=== PATIENT | female | born 1995 | race African-American/Black ===

== ENCOUNTER 2021-06-12 15:24 | Observation (INO) | payer MEDICAID | END 2021-06-12 16:35 | disposition home or self-care (01) | LOC: LDRP 15:24 → UNDODISOB 16:35 | PROVIDERS: ADMIT Obstetrics & Gynecology Obstetrics; ATTEND Obstetrics & Gynecology Obstetrics | DX: O62.9 Abnormality of forces of labor, unspecified (principal); O26.893 Other specified pregnancy related conditions, third trimester; N89.8 Other specified noninflammatory disorders of vagina; Z3A.35 35 weeks gestation of pregnancy | CPT/HCPCS: G0378 ×2; 59025; 81002; 94760 ==

== ENCOUNTER 2022-07-07 22:45 | Emergency (ER) | payer MEDICAID, OTHER ==
[~2022-07-07] VITALS: Ht 182.9 cm; Wt 84.0 kg
[2022-07-07 23:15] VITALS: BP 105/63
[2022-07-07 23:56] LABS: Basophils # (auto) 0.1 10 ^3/uL (0-0.2); Hemoglobin 12.6 g/dL (12.2-16.2); Lymphocytes # (auto) 3.2 10 ^3/uL (0.4-5.4); Monocytes # (auto) 0.5 10 ^3/uL (0-1.3); Monocytes % (auto) 6.6 % (0.0-12.0); Nucleated Red Blood Cells % 0.1 %
[2022-07-07 23:58] LABS: Basophils % (auto) 0.7 % (0.0-2.0); Eosinophils # (auto) 0.1 10 ^3/uL (0-0.8); Eosinophils % (auto) 1.8 % (0.0-7.0); Hematocrit 37.6 % (36.0-46.0); Lymphocytes % (auto) 41.1 % (10.0-50.0); Mean Corpuscular Hemoglobin 24.6 pg (28.0-32.0); Mean Corpuscular Hgb Conc. 33.6 g/dL (32.0-36.0); Mean Corpuscular Volume 73.2 fL (80.0-100.0); Neutrophils # (auto) 3.9 10 ^3/uL (1.6-8.6); Neutrophils % (auto) 49.8 % (37.0-80.0); Red Blood Cells 5.14 10^6/uL (4.0-5.20); Red Cell Distribution Width 19.1 % (11.8-14.3); White Blood Cell 7.8 10^3/uL (4.4-10.8)
[2022-07-08 00:06] LABS: Albumin 3.9 g/dL (3.4-5.0); BUN/Creatinine Ratio 15.4 (10.0-20.0); Calcium 9.6 mg/dL (8.5-10.1); Potassium 3.3 mmol/L (3.5-5.1)
[2022-07-08 00:09] LABS: Bilirubin, Total 0.4 mg/dL (0.2-1.0); Total Protein 8.1 g/dL (6.4-8.2)
[2022-07-08 01:10] LABS: Urine Bacteria NONE SEEN /hpf (None Seen); Urine Blood 3+ /uL (Negative); Urine Hyaline Cast FEW /lpf (0 - 2); Urine Mucus FEW (None Seen); Urine Specific Gravity 1.028 (1.001-1.035); Urine WBC 5 /hpf (0 - 5)
[2022-07-08 01:12] LABS: Alcohol, Urine < 3.0 mg/dL (0-10); Amphetamine Screen, Urine POSITIVE (NEGATIVE); Barbiturate Scree,Urine NEGATIVE (NEGATIVE); Cannabinoid Screen, Urine NEGATIVE (NEGATIVE)
[2022-07-08 01:21] LABS: Benzodiazephine Screen, Urine NEGATIVE (NEGATIVE); Cocaine Screen, Urine NEGATIVE (NEGATIVE); Opiate Scree,Urine NEGATIVE (NEGATIVE); Phencyclidine Screen, Urine NEGATIVE (NEGATIVE)
== END 2022-07-08 02:51 | disposition left against medical advice (07) ==
LOC: ER 22:45
DX: O46.8X2 Other antepartum hemorrhage, second trimester (principal); F15.90 Other stimulant use, unspecified, uncomplicated; O26.891 Other specified pregnancy related conditions, first trimester; R10.2 Pelvic and perineal pain; Z3A.16 16 weeks gestation of pregnancy
CPT/HCPCS: 36415; 76801; 80053; 80307; 81001; 84702; 85025

== ENCOUNTER 2022-07-08 07:47 | Inpatient (IN) | payer MEDICAID ==
[~2022-07-08] VITALS: Ht 177.8 cm; Wt 89.1 kg
[2022-07-08] MEDS ORDERED: SODIUM CHLORIDE 0.9% 2,000 ML IV ONE (08:15)
[2022-07-08] MEDS ORDERED: PROMETHAZINE HCL 25 MG/ML 1ML IV ONE (08:15)
[2022-07-08] MEDS ORDERED: MORPHINE SULFATE 4 MG/ML SYR/VIAL IV ONE (08:15)
[2022-07-08 09:07] LABS: Hematocrit 33.8 % (36.0-46.0); Mean Corpuscular Hemoglobin 24.8 pg (28.0-32.0); Mean Corpuscular Hgb Conc. 32.6 g/dL (32.0-36.0); Red Blood Cells 4.45 10^6/uL (4.0-5.20); Red Cell Distribution Width 19.5 % (11.8-14.3); White Blood Cell 7.8 10^3/uL (4.4-10.8)
[2022-07-08 09:12] LABS: Band Neutrophils % (manual) 0; Basophils % (manual) 0 (0.0-2.0); Blast Cells 0; Metamyelocytes % 0; Myelocytes % 0; Promyelocytes % 0
[2022-07-08 09:19] LABS: Calcium 8.7 mg/dL (8.5-10.1); Potassium 3.4 mmol/L (3.5-5.1)
[2022-07-08 09:23] LABS: BUN/Creatinine Ratio 13.4 (10.0-20.0); Bilirubin, Total 0.4 mg/dL (0.2-1.0); Total Protein 6.5 g/dL (6.4-8.2)
[2022-07-08] MEDS ORDERED: ACETAMINOPHEN 325 MG TAB PO ONE (10:45)
[2022-07-08 10:59] LABS: Eosinophils % (manual) 2 (0-7); Lymphocytes % (manual) 58 (10.0-50.0); Monocytes % (manual) 8 (0-12); Reactive Lymphocytes 4
[2022-07-08] MEDS ORDERED: MORPHINE SULFATE INJ 2 MG/ml SYRG IV PRN (13:00)
[2022-07-08] MEDS ORDERED: ONDANSETRON HCL 4 MG/2 ML VIAL IV PRN ×3 (13:00→22:00)
[2022-07-08 15:09] LABS: INR 1.05 (0.9-1.15); Partial Thromboplastin Time 23.4 sec (24.6-33.4)
[2022-07-08] MEDS ORDERED: SODIUM CHLORIDE 0.9% 1,000 ML IV SCH (18:15)
[2022-07-08] MEDS ORDERED: SODIUM CHLORIDE 0.9% 1,000 ML IV ONE (18:15)
[2022-07-08 19:45] LABS: Basophils % (auto) 0.6 % (0.0-2.0); Eosinophils # (auto) 0.1 10 ^3/uL (0-0.8); Eosinophils % (auto) 1.7 % (0.0-7.0); Hematocrit 18.7 % (36.0-46.0); Lymphocytes # (auto) 3.2 10 ^3/uL (0.4-5.4); Monocytes # (auto) 0.6 10 ^3/uL (0-1.3); Nucleated Red Blood Cells % 0.1 %; Red Blood Cells 2.49 10^6/uL (4.0-5.20)
[2022-07-08 19:48] LABS: Basophils # (auto) 0 10 ^3/uL (0-0.2); Lymphocytes % (auto) 36.7 % (10.0-50.0); Mean Corpuscular Hemoglobin 24.6 pg (28.0-32.0); Mean Corpuscular Hgb Conc. 32.8 g/dL (32.0-36.0); Mean Corpuscular Volume 75.1 fL (80.0-100.0); Neutrophils # (auto) 4.7 10 ^3/uL (1.6-8.6); Red Cell Distribution Width 19.2 % (11.8-14.3); White Blood Cell 8.6 10^3/uL (4.4-10.8)
[2022-07-08 20:19] LABS: Hemoglobin 6.1 g/dL (12.2-16.2)
[2022-07-08] MEDS ORDERED: SUCCINYLCHOLINE CHLORIDE 20 MG/ML 10ML VIAL IV ONE (21:03)
[2022-07-08] MEDS ORDERED: FAMOTIDINE (10MG/ML) 2ML VL IV ONE (21:03)
[2022-07-08] MEDS ORDERED: MIDAZOLAM HCL 2MG/2ML 2ml VIAL (1mg/ml) ONE (21:05)
[2022-07-08] MEDS ORDERED: fentaNYL CITRATE 100 MCG/2 ML VL ONE (21:05)
[2022-07-08] MEDS ORDERED: HYDROmorphone HCL 2 MG/ML VL/or syr ONE (21:05)
[2022-07-08] MEDS ORDERED: LIDOCAINE 2% (LOCAL ANESTH.) PF 5ml SDV ONE (21:06)
[2022-07-08] MEDS ORDERED: GLYCOPYRROLATE 0.2 MG/ML 1ML VIAL ONE (21:07)
[2022-07-08] MEDS ORDERED: DexAMETHasone SOD PHOS 10MG/1ML VIAL INJ ONE (21:07)
[2022-07-08] MEDS ORDERED: ceFAZolin 1GM/50ML 100 ML IV ONE (21:10)
[2022-07-08] MEDS ORDERED: HYDROmorphone HCL 2 MG/ML VL/or syr IV PRN (21:30)
[2022-07-08] MEDS ORDERED: MEPERIDINE HCL (25 MG/ML) 1ML VIAL ONE (22:05)
[2022-07-08 23:52] VITALS: BP 103/41
[2022-07-08] MEDS: LACTATED RINGER'S 1,000 ML IV SCH (23:53)
[2022-07-09 01:02] LABS: Basophils # (auto) 0.1 10 ^3/uL (0-0.2); Basophils % (auto) 0.3 % (0.0-2.0); Eosinophils # (auto) 0 10 ^3/uL (0-0.8); Eosinophils % (auto) 0.2 % (0.0-7.0); Hematocrit 30.4 % (36.0-46.0); Hemoglobin 9.9 g/dL (12.2-16.2); Lymphocytes # (auto) 1.6 10 ^3/uL (0.4-5.4); Lymphocytes % (auto) 8.1 % (10.0-50.0); Mean Corpuscular Hgb Conc. 32.4 g/dL (32.0-36.0); Mean Corpuscular Volume 83.4 fL (80.0-100.0); Monocytes # (auto) 0.5 10 ^3/uL (0-1.3); Monocytes % (auto) 2.4 % (0.0-12.0); Neutrophils # (auto) 17.5 10 ^3/uL (1.6-8.6); Red Blood Cells 3.64 10^6/uL (4.0-5.20); Red Cell Distribution Width 19.4 % (11.8-14.3); White Blood Cell 19.6 10^3/uL (4.4-10.8)
[2022-07-09] MEDS: ceFAZolin 2 GM/D5W100ml 100 ML IV SCH ×2 (05:00→13:00)
[2022-07-09] MEDS ORDERED: ceFAZolin 1GM/50ML 100 ML IV ONE (05:26)
[2022-07-09 09:00] VITALS: BP 129/71
[2022-07-09] MEDS: LACTATED RINGER'S 1,000 ML IV SCH ×2 (09:34→11:20)
[2022-07-09 13:00] VITALS: BP 110/62
== END 2022-07-09 13:50 | disposition home or self-care (01) | DRG 543 ==
LOC: ER 07:47 → EDBD 07:47 → OVERFLOW 12:56 → WEST WING 23:34
PROVIDERS: ADMIT Obstetrics & Gynecology; ATTEND Obstetrics & Gynecology
PROC: 30233N1 Transfusion of Nonautologous Red Blood Cells into Peripheral Vein, Percutaneous Approach (ICD-10-PCS; 2022-07-08)
PROC: 10D17ZZ Extraction of Products of Conception, Retained, Via Natural or Artificial Opening (ICD-10-PCS; principal; 2022-07-08 21:30)
DX: O03.4 Incomplete spontaneous abortion without complication (principal); D64.9 Anemia, unspecified
CPT/HCPCS: 36415; 76801; 80053; 84702; 85007; 85025; 85027; 85610; 85730; 86850; 86900; 86901; 86920; G0378; J0330; J0690; J1100; J2001; J2250; J2405; J3490

== ENCOUNTER 2025-02-14 08:46 | Inpatient (IN) | payer MEDICAID ==
[~2025-02-14] VITALS: Ht 182.9 cm; Wt 74.1 kg
[~2025-02-14 08:46] MED LIST: CEPH250C PO
--- NOTE | 2025-02-14 09:35 | ED.PDOC ---
History of Present Illness HPI Comments 29 year old female presents to the ED with a chief complaint of wound check onset today. Patient states she has a LT foot wound s/p spider bite since 01/27/25. Patient was seen in this ED yesterday, patient was going to be admitted for cellulitis, left prior to admission. Patient is currently homeless. For the past week, she has been experiencing large abscess with purulent drainage, foul odor. She went to Dr[facility], advised to come to ED. Denies fever, chills, nausea, vomiting, diarrhea, numbness/tingling, chest pain, shortness of breath. No other symptoms or modifying factors present at this time. Chief Complaint: Wound Check Time Seen by MD: 09:20 Reviewed Notes: Medications, Allergies Allergies: Coded Allergies: NO KNOWN ALLERGIES (Unverified , 03/09/23) Home Meds Active Scripts Cephalexin (KEFLEX CAPSULE) 250 Mg Cp, 250 MG PO QID for 5 Days, #20 BOTTLE Prov:LAKIA COONNOR MD 05/13/24 Information Source: Patient Mode of Arrival: Ambulatory Severity: Moderate Past Medical History PAST MEDICAL HISTORY: Denies Surgical History: Denies all surgeries FIRE INVESTIGATOR History: No Pertinent FIRE INVESTIGATOR History Family History Family History: Reviewed,noncontributory to illness Social History Smoker: Non-Smoker Alcohol: Denies ETOH Use Drugs: Methamphetamine, Other Lives In: Homeless Constitutional: denies: chills, diaphoresis, fatigue, fever, malaise, sweats, weakness, others EENTM: denies: blurred vision, double vision, ear bleeding, ear discharge, ear drainage, ear pain, ear ringing, eye pain, eye redness, hearing loss, mouth pain, mouth swelling, nasal discharge, nose bleeding, nose congestion, nose pain, photophobia, tearing, throat pain, throat swelling, voice changes, others Respiratory: denies: cough, hemoptysis, orthopnea, SOB at rest, shortness of breath, SOB with excertion, stridor, wheezing, others Cardiovascular: denies: chest pain, dizzy spells, diaphoresis, Dyspnea on exertion, edema, irregular heart beat, left arm pain, lightheadedness, palpitations, PND, syncope, others Gastrointestinal: denies: abdomen distended, abdominal pain, blood streaked bowels, constipated, diarrhea, dysphagia, difficulty swallowing, hematemesis, melena, nausea, poor appetite, poor fluid intake, rectal bleeding, rectal pain, vomiting, others Genitourinary: denies: abnormal vagina bleeding, burning, dyspareunia, dysuria, flank pain, frequency, hematuria, incontinence, pain, , vagina discharge, urgency, others Neurological: denies: dizziness, fainting, headache, left sided numbness, left sided weakness, numbness, paresthesia, pre-existing deficit, right sided numbness, right sided weakness, seizure, speech problems, tingling, tremors, weakness, others Musculoskeletal: denies: back pain, gout, joint pain, joint swelling, muscle pain, muscle stiffness, neck pain, others Integumetry: reports: wounds (LT foot, edema, pain); denies: bruises, change in color, change in hair/nails, dryness, laceration, lesions, lumps, rash, others Allergic/Immunocompromised: denies: Difficulty Healing, Frequent Infections, Hives, Itching, others Hematologic/Lymphatic: denies: anemia, blood clots, easy bleeding, easy bruising, swollen glands, others Endocrine: denies: excessive hunger, excessive sweating, excessive thirst, excessive urination, flushing, intolerance to cold, intolerance to heat, unexplained weight gain, unexplained weight loss, others Psychiatric: denies: anxiety, bipolar disorder, depression, hopeless, panic disorder, schizophrenia, sleepless, suicidal, others All Other Systems: Reviewed and Negative Physical Exam General Appearance: Moderate Distress, Normal HEENT: Normal ENT Inspection, Pharynx Normal, TMs Normal Neck: Full Range of Motion, Non-Tender, Normal, Normal Inspection Respiratory: Chest Non-Tender, Lungs Clear, No Accessory Muscle Use, No Respiratory Distress, Normal Breath Sounds Cardiovascular: No Edema, No JVD, No Murmur, No Gallop, Normal Peripheral Pulses, Regular Rate/Rhythm Breast Exam: Deferred Gastrointestinal: No Organomegaly, Non Tender, No Pulsatile Mass, Normal Bowel Sounds, Soft Genitalia: Deferred Pelvic: Deferred Rectal: Deferred Extremities: No calf tenderness, Normal capillary refill, Normal range of motion, Non-tender, No pedal edema, Swelling (Left foot) Musculoskeletal : Apperance: Normal Neurologic: Alert, cs associate II-XII nml as Tested, No Motor Deficits, Normal Affect, Normal Mood, No Sensory Deficits Cerebellar Function: Normal Reflexes: Normal Skin: Dry, Normal Color, Warm, Wounds (Left foot) Peripheral Pulses: 3+ Radial (R), 3+ Radial (L) Lymphatic: No Adenopathy Was a procedure done? Was a procedure done?: No Differential Dx Considerations may include: Cellulitis Sepsis X-Ray, Labs, Meds, VS Vital Signs Date Time Temp Pulse Resp B/P (MAP) Pulse Ox O2 Delivery O2 Flow Rate FiO2 02/14/25 09:20 97.9 75 17 132/81 (98) 96 97.9 02/14/25 08:50 98.5 105 16 141/93 100 98.5 Patient alert. Came in because of foot infection. Vitals stable. Answering questions. On examination she does have swelling of the left foot pain Reviewed her previous visit. She left against medical advice. She does not state the whole course of her visit. Establish intravenous access. Was given fluids. Was given Rocephin. Was given clindamycin. Explained to the patient. Continue monitoring. Time of 1ST Reevaluation: 09:50 Reevaluation 1ST: Unchanged Patient Education/Counseling: Diagnosis, Treatment, Prognosis Family Education/Counseling: No Family Present SEPSIS Sepsis Screen Date sepsis recognized/suspect: Feb 14, 2025 Time Sepsis recognized/suspect: 0851 Recent Procedure: No On Antibiotic Therapy: No Respiratory Rate >20: No Heart Rate >90: Yes Temp<36 C (96.8 F) or >38.3 C: No SBP <90 or MAP <65 mmHG: No New Acute Mental Status Change: No Is the patient on CPAP, BIPAP,: No Vital Signs Date Time Temp Pulse Resp B/P (MAP) Pulse Ox O2 Delivery O2 Flow Rate FiO2 02/14/25 09:20 97.9 75 17 132/81 (98) 96 97.9 02/14/25 08:50 98.5 105 16 141/93 100 98.5 Departure 1 Departure Time of Disposition: 11:03 Impression: Primary Impression: Cellulitis Qualified Codes: L03.116 - Cellulitis of left lower limb Additional Impression: Chronic wound of extremity Disposition: ADMITTED INPATIENT Admit to: Med Surg Condition: Guarded Critical Care Note Critical Care Time?: No Stability Stability form required: No Heart Score Heart Score: Heart Score Response (Comments) Value History N/A 0 EKG N/A 0 Age N/A 0 Risk Factors N/A 0 Troponin N/A 0 Total 0 I personally scribed for LAKIA OCONNOR MD ([email or web address]) on 02/14/25 at 09:35. Electronically submitted by Tamiko Cristobal ([email or web address]). LAKIA OCONNOR MD Feb 14, 2025 09:35
[2025-02-14] MEDS ORDERED: SODIUM CHLORIDE 0.9% 1,000 ML IV ONE (11:15)
[2025-02-14] MEDS ORDERED: MORPHINE SULFATE INJ 2 MG/ml SYRG IV PRN (11:30)
[2025-02-14] MEDS ORDERED: DOCUSATE SOD 100 MG CAP PO PRN (11:30)
[2025-02-14] MEDS ORDERED: IBUPROFEN 600 MG TAB PO PRN (11:30)
[2025-02-14] MEDS: SODIUM CHLORIDE 0.9% 1,000 ML IV SCH (11:30)
[2025-02-14] MEDS ORDERED: ONDANSETRON HCL 4 MG/2 ML VIAL IV PRN (11:30)
[2025-02-14 11:50] LABS: Hematocrit 34.7 % (36.0-46.0); Hemoglobin 11.3 g/dL (12.2-16.2); Mean Corpuscular Hemoglobin 24.0 pg (28.0-32.0); Mean Corpuscular Volume 73.8 fL (80.0-100.0); Nucleated Red Blood Cells % 0.0 %
[2025-02-14 11:53] LABS: Chloride 102 mmol/L (98-107); Potassium 4.2 mmol/L (3.5-5.1); Sodium 137 mmol/L (136-145)
[2025-02-14 11:54] LABS: Anion Gap 6 (5-15); Carbon Dioxide 29 mmol/L (20-31)
[2025-02-14 11:55] LABS: Calcium 9.5 mg/dL (8.7-10.4)
[2025-02-14 12:00] LABS: BUN/Creatinine Ratio 10.2 (10.0-20.0); Glucose 88 mg/dL (74-106)
[2025-02-14 12:02] LABS: Blood Urea Nitrogen 6 mg/dL (9-23)
--- NOTE | 2025-02-14 12:54 | DVHHP2 ---
History of Present Illness Reason for Visit: Cellulitis of left lower limb History of Present Illness The patient is a 29-year-old female who denies past medical history presented to [facility] ED with complaint of left foot pain. Patient reports that she had a spider bite on January 27, 2025 which has progressively became infected with open wound abscess with purulent discharge, foul odor, getting worse that prompted this visit. Patient was seen and evaluated in the ED, laboratory data shows WBC 6.8, hemoglobin 11.3, hematocrit 34.7, platelets 508, sodium 137, potassium 4.2, BUN 6, creatinine 0.59, GFR 124, glucose 88, calcium 9.5, blood pressure 132/81, heart rate 75, temperature 97.9 F, O2 saturation 97% on room air. Left foot x-ray revealing soft tissue defect along the lateral and dorsal aspect of the ankle with underlying skin thickening and soft tissue fluid/standing. Patient was started on IV antibiotic regimen clindamycin, please see medication orders section in the computer. On my assessment, patient denied chest pain, no headache, dizziness, shortness of breaths, no diarrhea, nausea, vomiting, fever, no chills. Patient was admitted for further evaluation and medical management. Past Medical History Denies past medical history Past Surgical History Denies all surgeries Family History Reviewed, noncontributory to the management of this case. Past Social History The patient is homeless, denies smoking or alcohol use, uses methamphetamine. Review of Systems Constitutional: No: Fever, Chills, Sweats, Weakness, Malaise, Other Eyes: No: Pain, Vision change, Conjunctivae inflammation, Eyelid inflammation, Other, Redness ENT: No: Ear pain, Ear discharge, Nose pain, Nose discharge, Nose congestion, Mouth pain, Mouth swelling, Throat pain, Throat swelling, Other Respiratory: No: Cough, Dry, Shortness of breath, SOB with excertion, Wheezing, Hemoptysis, Pleuritic Pain, Sputum, Wheezing, Other Cardiovascular: No: Chest Pain, Palpitations, Orthopnea, Paroxysmal Noc. Dyspnea, Edema, Lt Headedness, Other Gastrointestinal: No: Nausea, Vomiting, Abdominal Pain, Diarrhea, Constipation, Melena, Hematochezia, Other Genitourinary: No Dysuria, No Frequency, No Incontinence, No Hematuria, No Retention, No Other Musculoskeletal: other (Left foot edema/pain); No: neck pain, shoulder pain, arm pain, back pain, hand pain, leg pain, foot pain Skin: Other (Left foot abscess); No: Rash, Lesions, Jaundice, Bruising Neurological: No: Weakness, Numbness, Incoordination, Change in speech, Confusion, Seizures, Other Allergies: Coded Allergies: NO KNOWN ALLERGIES (Unverified , 03/09/23) Medications Current Medications Medications Dose Ordered Sig/Nadia Route Start Time Stop Time Status Last Admin Dose Admin Ceftriaxone Sodium 50 ml @ 100 mls/hr DAILY@09 IV 02/15/25 09:00 Clindamycin Phosphate 50 ml @ 50 mls/hr Q8HR IV 02/14/25 19:00 Sodium Chloride 1,000 ml @ 60 mls/hr [id number] IV 02/14/25 11:30 Acetaminophen/ Hydrocodone Bitart 1 tab Q4HP PRN PO 02/14/25 11:30 Ondansetron HCl 4 mg Q4HP PRN IV 02/14/25 11:30 Docusate Sodium 100 mg BIDPRN PRN PO 02/14/25 11:30 Enoxaparin Sodium 40 mg DAILY SC 02/15/25 10:00 Future Hold Zinc Sulfate 220 mg DAILY PO 02/15/25 10:00 Ascorbic Acid 500 mg BID PO 02/14/25 22:00 Morphine Sulfate 2 mg Q4HPRN PRN IV 02/14/25 11:30 Ibuprofen 600 mg Q6HP PRN PO 02/14/25 11:30 Exam Vital Signs Vital Signs Date Time Temp Pulse Resp B/P (MAP) Pulse Ox O2 Delivery O2 Flow Rate FiO2 02/14/25 09:20 97.9 75 17 132/81 (98) 96 97.9 General Appearance: Alert, Oriented X3, Cooperative, No acute distress HEENT: Atraumatic, PERRLA, EOMI, Mucous membr. moist/pink Respiratory: Clear to auscultation, Normal air movement Cardiovascular: Regular rate, Normal S1, Normal S2, No murmurs Abdominal: Normal bowel sounds, Soft, No tenderness, No hepatospenomegaly, No masses Extremities: No clubbing, No cyanosis, No edema, Normal pulses, No tenderness/swelling Skin: No rashes, No significant lesion Neuro: Normal gait, Normal speech, Normal tone, Sensation intact, Cranial nerves 3-12 NL, Reflexes 2+ Psych/Mental Status: Mental status NL, Mood NL Labs/Xrays Labs Test 02/14/25 11:27 Range/Units White Blood Count 6.8 4.4-10.8 10^3/uL Red Blood Count 4.70 4.0-5.20 10^6/uL Hemoglobin 11.3 L 12.2-16.2 g/dL Hematocrit 34.7 L 36.0-46.0 % Mean Corpuscular Volume 73.8 L 80.0-100.0 fL Mean Corpuscular Hemoglobin 24.0 L 28.0-32.0 pg Mean Corpuscular Hemoglobin Concent 32.5 32.0-36.0 g/dL Red Cell Distribution Width 16.9 H 11.8-14.3 % Platelet Count 508 H 140-450 10^3/uL Mean Platelet Volume 6.5 L 6.9-10.8 fL Neutrophils (%) (Auto) 43.8 37.0-80.0 % Lymphocytes (%) (Auto) 44.0 10.0-50.0 % Monocytes (%) (Auto) 9.8 0.0-12.0 % Eosinophils (%) (Auto) 1.5 0.0-7.0 % Basophils (%) (Auto) 0.9 0.0-2.0 % Neutrophils # (Auto) 3.0 1.6-8.6 10 ^3/uL Lymphocytes # (Auto) 3.0 0.4-5.4 10 ^3/uL Monocytes # (Auto) 0.7 0-1.3 10 ^3/uL Eosinophils # (Auto) 0.1 0-0.8 10 ^3/uL Basophils # (Auto) 0.1 0-0.2 10 ^3/uL Nucleated Red Blood Cells 0.0 % Sodium Level 137 136-145 mmol/L Potassium Level 4.2 3.5-5.1 mmol/L Chloride Level 102 98-107 mmol/L Carbon Dioxide Level 29 20-31 mmol/L Anion Gap 6 5-15 Blood Urea Nitrogen 6 L 9-23 mg/dL Creatinine 0.59 0.550-1.02 mg/dL Glomerular Filtration Rate Calc 124 >90 mL/min BUN/Creatinine Ratio 10.2 10.0-20.0 Serum Glucose 88 74-106 mg/dL Calcium Level 9.5 8.7-10.4 mg/dL PATIENT: CHANDA BLANCHARD ACCT: [id number] UNIT: [id number] : 1995 LOC: OVERFLOW ROOM / BED: 1019-ER / A AGE / SEX: 29 / F ADM STATUS: ADM IN SERVICE 2324 ORDERING PHYSICIAN: RACHID RICE PROCEDURE(s): LFTCT - CT L FOOT WO CONTRAST REASON: wound ORDER NUMBER(s): [id number], ACCESSION NUMBER(s): [id number] EXAM: CT CT L FOOT WO CONTRAST HISTORY: wound COMPARISON: None TECHNIQUE: Noncontrast axial CT images of the left foot were performed. Sagittal and coronal reformatted images were obtained. This CT exam was performed using one or more of the following dose reduction techniques: Automated exposure control, adjustment of the mA and/or kv according to patient size, or the use of iterative reconstruction techniques. Radiation Dose Information: CT Dose: CTDI volume is 7.75 mGy. Dose-length product is 211.92 mGy*cm FINDINGS: No acute fracture or dislocation are identified about the left foot. No significant degenerative changes. There is a soft tissue defect along the lateral and dorsal aspect of the ankle with underlying skin thickening, soft tissue fluid/stranding. No drainable collection is seen. IMPRESSION: 1. Soft tissue defect along the lateral and dorsal aspect of the ankle with underlying skin thickening and soft tissue fluid/stranding. No drainable collection is seen. MRI would be more sensitive for the evaluation of suspected osteomyelitis if clinically indicated. SEPSIS Sepsis Screen Date sepsis recognized/suspect: Feb 14, 2025 Time Sepsis recognized/suspect: 0851 Recent Procedure: No On Antibiotic Therapy: No Respiratory Rate >20: No Heart Rate >90: Yes Temp<36 C (96.8 F) or >38.3 C: No SBP <90 or MAP <65 mmHG: No New Acute Mental Status Change: No Is the patient on CPAP, BIPAP,: No Physician Orders Urinalysis (02/14/25 11:05) Ceftriaxone 1gm/50ml (Rocephin) (02/15/25 09:00) Clindamycin 300mg Iv (Cleocin Iv) (02/14/25 19:00) Allergies (02/14/25 11:16) Code Status (02/14/25 11:16) Sodium Chloride 0.9% (02/14/25 11:30) Oxygen Per Hour (02/14/25 11:16) Hydrocodone-Acet 5/325mg Tab ([place] 532 (02/14/25 11:30) Ondansetron Hcl (Zofran) (02/14/25 11:30) Docusate Sodium Capsule (Colace Capsule) (02/14/25 11:30) Enoxaparin Sodium (Lovenox) (02/15/25 10:00) Zinc Sulfate (02/15/25 10:00) Ascorbic Acid Tablet (Vitamin C Tablet) (02/14/25 22:00) Complete Blood Count (02/15/25 04:00) Comprehensive Metabolic Panel (02/15/25 04:00) Cardiac Diet-2gna,Lofat,Lochol (02/14/25 Lunch) Condition: Serious (02/14/25 11:16) Bedrest With Bathroom Privileg (02/14/25 11:16) Morphine Sulfate Injection (02/14/25 11:30) Ibuprofen Tablet (Motrin Tablet) (02/14/25 11:30) Admit (02/14/25 12:53) Nitroglycerin Sublingual (Ntrostat Subli (02/14/25 13:00) Vital Signs Date Time Temp Pulse Resp B/P (MAP) Pulse Ox O2 Delivery O2 Flow Rate FiO2 02/14/25 09:20 97.9 75 17 132/81 (98) 96 97.9 02/14/25 08:50 98.5 105 16 141/93 100 98.5 Laboratory Tests Test 02/14/25 11:27 White Blood Count 6.8 10^3/uL (4.4-10.8) Assessment/Plan Assessment/Plan Cellulitis of left lower limb Thrombocytosis Chronic wound of extremity Plan 1. Admit to med surge unit 2. Breathing treatment 3. Pain control management 4. IV antibiotic management 5. Management of fluids and electrolytes 6. Consultation for hospitalist/wound care 7. Diagnostic test left foot CT 8. DVT prophylaxis on Lovenox 9. Repeat labs CBC, CMP in a.m. 10. Continue with current medical management 11. Treatment plan discussed with patient and RN. Patient verbalized understanding. Plan discussed with: Patient, Other (RN) My Orders Orders - DANIEL MCGOVERN DNP Procedure Category Date Status Time Ceftriaxone 1gm/50ml PHA 02/15/25 In Process (Rocephin) 09:00 Clindamycin 300mg Iv PHA 02/14/25 In Process (Cleocin Iv) 19:00 Allergies HOLLIE 02/14/25 In Process 11:16 Code Status CODE 02/14/25 Transmitted 11:16 Sodium Chloride 0.9% PHA 02/14/25 In Process 11:30 Oxygen Per Hour RT 02/14/25 Transmitted 11:16 Hydrocodone-Acet PHA 02/14/25 In Process 5/325mg Tab ([place] 11:30 Ondansetron Hcl PHA 02/14/25 In Process (Zofran) 11:30 Docusate Sodium PHA 02/14/25 In Process Capsule (Colace 11:30 Enoxaparin Sodium PHA 02/15/25 In Process (Lovenox) 10:00 Zinc Sulfate PHA 02/15/25 In Process 10:00 Ascorbic Acid Tablet PHA 02/14/25 In Process (Vitamin C Tablet) 22:00 Complete Blood Count LAB 02/15/25 Verified 04:00 Comprehensive LAB 02/15/25 Verified Metabolic Panel 04:00 Cardiac DIET 02/14/25 Transmitted Diet-2gna,Lofat,Lochol Lunch Condition: Serious HOLLIE 02/14/25 In Process 11:16 Bedrest With Bathroom HOLLIE 02/14/25 In Process Privileg 11:16 Morphine Sulfate PHA 02/14/25 In Process Injection 11:30 Ibuprofen Tablet PHA 02/14/25 In Process (Motrin Tablet) 11:30 Admit ADMIT 02/14/25 Verified 12:53 Nitroglycerin PHA 02/14/25 Verified Sublingual (Ntrostat 13:00 Problem List: (1) Cellulitis of left lower limb (2) Thrombocytosis (3) Chronic wound of extremity Date of Service: Feb 14, 2025 Billing Provider: DANIEL MCGOVERN DNP Common Visit Codes: [id number] INP/OBS CARE (MOD) DANIEL MCGOVERN DNP Feb 14, 2025 12:54
[2025-02-14] MEDS ORDERED: NITROGLYCERIN 0.4 MG SL TAB SL PRN (13:00)
[2025-02-14] MEDS ORDERED: MORPHINE SULFATE 4 MG/ML SYR/VIAL IV PRN (13:15)
[2025-02-14] MEDS: SODIUM CHLORIDE 0.9% 1,000 ML IV ONE (13:55)
[2025-02-14 14:00] VITALS: PULSE 70; RESP 16; O2SAT 96
[2025-02-14] MEDS: CLINDAMYCIN 600MG IV 50 ML IV ONE (16:08)
[2025-02-14] MEDS: CLINDAMYCIN 300MG IV 50 ML IV SCH (19:55)
[2025-02-14 20:38] VITALS: BP 126/87; PULSE 86; RESP 17; TEMP 97.7; O2SAT 98
[2025-02-14] MEDS: ASCORBIC ACID 500 MG TAB PO SCH (21:40)
[2025-02-14 23:24] VITALS: PULSE 98; RESP 16; O2SAT 97
[2025-02-15 01:00] VITALS: BP 130/89; PULSE 98; RESP 16; TEMP 98; O2SAT 95
[2025-02-15 05:00] VITALS: BP 158/85; PULSE 111; RESP 18; TEMP 98.7; O2SAT 99
[2025-02-15 07:05] LABS: Hematocrit 31.0 % (36.0-46.0); Hemoglobin 10.1 g/dL (12.2-16.2); Mean Corpuscular Hemoglobin 23.9 pg (28.0-32.0); Mean Corpuscular Volume 73.5 fL (80.0-100.0); Nucleated Red Blood Cells % 0.1 %
[2025-02-15 07:15] LABS: Alkaline Phosphatase 73 U/L (46-116); Anion Gap 8 (5-15); Calcium 8.8 mg/dL (8.7-10.4); Carbon Dioxide 26 mmol/L (20-31); Chloride 106 mmol/L (98-107); Glucose 95 mg/dL (74-106); Potassium 3.7 mmol/L (3.5-5.1); Sodium 140 mmol/L (136-145); Total Protein 7.3 g/dL (5.7-8.2)
[2025-02-15 07:30] LABS: Alanine Aminotransferase 117 U/L (7-40); Albumin 3.1 g/dL (3.2-4.8); BUN/Creatinine Ratio 8.6 (10.0-20.0); Bilirubin, Total 0.3 mg/dL (0.2-1.0); Blood Urea Nitrogen < 5 mg/dL (9-23)
[2025-02-15 08:00] VITALS: O2SAT 98
[2025-02-15 09:00] VITALS: BP 146/93; PULSE 62; RESP 18; TEMP 97.2; O2SAT 98
[2025-02-15] MEDS: ENOXAPARIN SOD 40 MG/0.4 ML SYRINGE SC SCH (10:38)
[2025-02-15] MEDS: ZINC SULFATE 220mg CAP or TAB PO SCH (10:38)
--- NOTE | 2025-02-15 15:35 | DVHPN2 ---
Changes from previous H/P or p: No Changes Eyes: No Pain, No Vision change, No Conjunctivae inflammation, No Eyelid inflammation, No Other, No Redness ENT: No Ear pain, No Ear discharge, No Nose pain, No Nose discharge, No Nose congestion, No Mouth pain, No Mouth swelling, No Throat pain, No Throat swelling, No Other Cardiovascular: No Chest Pain, No Palpitations, No Orthopnea, No Paroxysmal Noc. Dyspnea, No Edema, No Lt Headedness, No Other Respiratory: No Cough, No Dry, No Shortness of breath, No SOB with excertion, No Wheezing, No Hemoptysis, No Pleuritic Pain, No Sputum, No Other Gastrointestinal: No Nausea, No Vomiting, No Abdominal Pain, No Diarrhea, No Constipation, No Melena, No Hematochezia, No Other Genitourinary: No Dysuria, No Frequency, No Incontinence, No Hematuria, No Retention, No Other Musculoskeletal: other (Left foot edema/pain); No neck pain, No shoulder pain, No arm pain, No back pain, No hand pain, No leg pain, No foot pain Skin: No Rash, No Lesions, No Jaundice, No Bruising; Other (Left foot abscess) Objective Vitals Vital Signs Date Time Temp Pulse Resp B/P (MAP) Pulse Ox O2 Delivery O2 Flow Rate FiO2 02/15/25 09:00 97.2 62 18 146/93 (110) 98 97.2 02/14/25 23:24 Room Air* 0 21 Intake/Output Intake and Output 02/15/25 07:00 Intake Total 1425 ml Balance 1425 ml Intake Oral 325 ml IV Total 1100 ml Medications Current Medications Medications Dose Ordered Sig/Nadia Route Start Time Stop Time Status Last Admin Dose Admin Ceftriaxone Sodium 50 ml @ 100 mls/hr DAILY@09 IV 02/15/25 09:00 02/15/25 10:38 100 MLS/HR Clindamycin Phosphate 50 ml @ 50 mls/hr Q8HR IV 02/14/25 19:00 02/15/25 14:15 50 MLS/HR Sodium Chloride 1,000 ml @ 60 mls/hr [id number] IV 02/14/25 11:30 02/15/25 04:24 60 MLS/HR Acetaminophen/ Hydrocodone Bitart 1 tab Q4HP PRN PO 02/14/25 11:30 Ondansetron HCl 4 mg Q4HP PRN IV 02/14/25 11:30 Docusate Sodium 100 mg BIDPRN PRN PO 02/14/25 11:30 Enoxaparin Sodium 40 mg DAILY SC 02/15/25 10:00 02/15/25 10:38 40 MG Zinc Sulfate 220 mg DAILY PO 02/15/25 10:00 02/15/25 10:38 220 MG Ascorbic Acid 500 mg BID PO 02/14/25 22:00 02/15/25 10:38 500 MG Ibuprofen 600 mg Q6HP PRN PO 02/14/25 11:30 Nitroglycerin 0.4 mg Q5MINP PRN SL 02/14/25 13:00 Morphine Sulfate 2 mg Q30M PRN IV 02/14/25 13:15 Morphine Sulfate 2 mg Q4HPRN PRN IV 02/15/25 11:15 Laboratory Results Laboratory Tests 02/15/25 04:47 Chemistry Test 02/15/25 04:47 Albumin 3.1 g/dL (3.2-4.8) L Calcium Level 8.8 mg/dL (8.7-10.4) Total Protein 7.3 g/dL (5.7-8.2) LFT Test 02/15/25 04:47 Alanine Aminotransferase (ALT) 117 U/L (7-40) H Alkaline Phosphatase 73 U/L (46-116) Aspartate Amino Transferase (AST) 111 U/L (13-40) H Total Bilirubin 0.3 mg/dL (0.2-1.0) Labs and/or images reviewed: Labs reviewed by me, Image(s) reviewed by me Assessment/Plan Assessment/Plan Cellulitis of left foot: Rocephin clindamycin pain medication Thrombocytosis Chronic wound of extremity DCd from this hospital 02-14-25 Check Urine drug screen MIKE vera at bedside Plan discussed with: Patient Date of Service: Feb 15, 2025 Billing Provider: EMANUEL WEEKS MD Common Visit Codes: [id number] INP/OBS CARE(HIGH) EMANUEL WEEKS MD Feb 15, 2025 15:35
[2025-02-15 20:00] VITALS: PULSE 99; RESP 17; O2SAT 98
[2025-02-15 21:00] VITALS: BP 124/91; PULSE 99; RESP 17; TEMP 98.4; O2SAT 98
[2025-02-16] VITALS (7 sets, daily range): BP systolic 98–155; BP diastolic 56–86; PULSE 84–100; RESP 16–22; TEMP 97–98.9; O2SAT 98–100
[2025-02-16] MEDS: HYDROcodone-ACET 5/325MG TAB PO PRN (06:42)
--- NOTE | 2025-02-16 11:02 | DVHPN2 ---
Reviewed: Care Plan, H&P, Labs, Medications, Previous Orders, Radiology Changes from previous H/P or p: No Changes Eyes: No Pain, No Vision change, No Conjunctivae inflammation, No Eyelid inflammation, No Other, No Redness ENT: No Ear pain, No Ear discharge, No Nose pain, No Nose discharge, No Nose congestion, No Mouth pain, No Mouth swelling, No Throat pain, No Throat swelling, No Other Cardiovascular: No Chest Pain, No Palpitations, No Orthopnea, No Paroxysmal Noc. Dyspnea, No Edema, No Lt Headedness, No Other Respiratory: No Cough, No Dry, No Shortness of breath, No SOB with excertion, No Wheezing, No Hemoptysis, No Pleuritic Pain, No Sputum, No Other Gastrointestinal: No Nausea, No Vomiting, No Abdominal Pain, No Diarrhea, No Constipation, No Melena, No Hematochezia, No Other Genitourinary: No Dysuria, No Frequency, No Incontinence, No Hematuria, No Retention, No Other Musculoskeletal: other (Left foot edema/pain); No neck pain, No shoulder pain, No arm pain, No back pain, No hand pain, No leg pain, No foot pain Skin: No Rash, No Lesions, No Jaundice, No Bruising; Other (Left foot abscess) Objective Vitals Vital Signs Date Time Temp Pulse Resp B/P (MAP) Pulse Ox O2 Delivery O2 Flow Rate FiO2 02/16/25 08:47 98.1 89 16 121/74 (90) 100 98.1 02/15/25 20:00 Room Air* 0 21 Intake/Output Intake and Output 02/16/25 07:00 Intake Total 1200 ml Balance 1200 ml Intake Oral 1200 ml # Voids 4 Medications Current Medications Medications Dose Ordered Sig/Nadia Route Start Time Stop Time Status Last Admin Dose Admin Ceftriaxone Sodium 50 ml @ 100 mls/hr DAILY@09 IV 02/15/25 09:00 02/15/25 10:38 100 MLS/HR Clindamycin Phosphate 50 ml @ 50 mls/hr Q8HR IV 02/14/25 19:00 02/16/25 06:42 50 MLS/HR Sodium Chloride 1,000 ml @ 60 mls/hr [id number] IV 02/14/25 11:30 02/15/25 04:24 60 MLS/HR Acetaminophen/ Hydrocodone Bitart 1 tab Q4HP PRN PO 12/2/25 11:30 02/16/25 06:42 1 TAB Ondansetron HCl 4 mg Q4HP PRN IV 02/14/25 11:30 Docusate Sodium 100 mg BIDPRN PRN PO 02/14/25 11:30 Enoxaparin Sodium 40 mg DAILY SC 02/15/25 10:00 02/15/25 10:38 40 MG Zinc Sulfate 220 mg DAILY PO 02/15/25 10:00 02/15/25 10:38 220 MG Ascorbic Acid 500 mg BID PO 02/14/25 22:00 02/15/25 22:20 500 MG Ibuprofen 600 mg Q6HP PRN PO 02/14/25 11:30 Nitroglycerin 0.4 mg Q5MINP PRN SL 02/14/25 13:00 Morphine Sulfate 2 mg Q30M PRN IV 02/14/25 13:15 Morphine Sulfate 2 mg Q4HPRN PRN IV 02/15/25 11:15 Laboratory Results Laboratory Tests 02/15/25 04:47 Labs and/or images reviewed: Labs reviewed by me, Image(s) reviewed by me Assessment/Plan Assessment/Plan Cellulitis of left foot: Rocephin clindamycin pain medication Thrombocytosis Chronic wound of extremity DCd from this hospital 02-14-25 Check Urine drug screen MIKE Garcia at bedside Plan discussed with: Patient My Orders Orders - EMANUEL WEEKS MD Procedure Category Date Status Time Drug Screen LAB 02/15/25 Logged 15:35 Cleanse Wound With HOLLIE 02/15/25 In Process Wound Clean 10:40 * Dietary Consult CONS 02/15/25 Transmitted 15:45 Date of Service: Feb 16, 2025 Billing Provider: EMANUEL WEEKS MD Common Visit Codes: [id number] INP/OBS CARE(HIGH) EMANUEL WEEKS MD Feb 16, 2025 11:02
[2025-02-16 13:22] LABS: Urine Amorphous Crystal FEW /hpf (None Seen); Urine Protein, UAD Negative (Negative)
[2025-02-16] MEDS: MORPHINE SULFATE 4 MG/ML SYR/VIAL IV PRN (14:24)
[2025-02-16 16:04] LABS: Opiate Scree,Urine Neg (NEGATIVE); Phencyclidine Screen, Urine Neg (NEGATIVE)
[2025-02-16 16:07] LABS: Amphetamine Screen, Urine Pos (NEGATIVE); Barbiturate Scree,Urine Neg (NEGATIVE); Benzodiazephine Screen, Urine Neg (NEGATIVE); Cannabinoid Screen, Urine Neg (NEGATIVE); Cocaine Screen, Urine Neg (NEGATIVE)
[2025-02-17] VITALS (7 sets, daily range): BP systolic 109–134; BP diastolic 60–82; PULSE 74–97; RESP 17–20; TEMP 97–98.8; O2SAT 97–100
--- NOTE | 2025-02-17 11:02 | DVHPN2 ---
Reviewed: Care Plan, H&P, Labs, Medications, Previous Orders, Radiology Changes from previous H/P or p: No Changes Eyes: No Pain, No Vision change, No Conjunctivae inflammation, No Eyelid inflammation, No Other, No Redness ENT: No Ear pain, No Ear discharge, No Nose pain, No Nose discharge, No Nose congestion, No Mouth pain, No Mouth swelling, No Throat pain, No Throat swelling, No Other Cardiovascular: No Chest Pain, No Palpitations, No Orthopnea, No Paroxysmal Noc. Dyspnea, No Edema, No Lt Headedness, No Other Respiratory: No Cough, No Dry, No Shortness of breath, No SOB with excertion, No Wheezing, No Hemoptysis, No Pleuritic Pain, No Sputum, No Other Gastrointestinal: No Nausea, No Vomiting, No Abdominal Pain, No Diarrhea, No Constipation, No Melena, No Hematochezia, No Other Genitourinary: No Dysuria, No Frequency, No Incontinence, No Hematuria, No Retention, No Other Musculoskeletal: other (Left foot edema/pain); No neck pain, No shoulder pain, No arm pain, No back pain, No hand pain, No leg pain, No foot pain Skin: No Rash, No Lesions, No Jaundice, No Bruising; Other (Left foot abscess) Objective Vitals Vital Signs Date Time Temp Pulse Resp B/P (MAP) Pulse Ox O2 Delivery O2 Flow Rate FiO2 02/17/25 10:14 74 20 120/66 02/17/25 08:50 98.8 98 98.8 02/16/25 20:00 Room Air* 0 21 Intake/Output Intake and Output 02/17/25 07:00 Intake Total 1680 ml Balance 1680 ml Intake Oral 910 ml IV Total 770 ml # Voids 4 Medications Current Medications Medications Dose Ordered Sig/Nadia Route Start Time Stop Time Status Last Admin Dose Admin Ceftriaxone Sodium 50 ml @ 100 mls/hr DAILY@09 IV 02/15/25 09:00 02/17/25 10:14 100 MLS/HR Clindamycin Phosphate 50 ml @ 50 mls/hr Q8HR IV 02/14/25 19:00 02/17/25 05:09 50 MLS/HR Sodium Chloride 1,000 ml @ 60 mls/hr [id number] IV 02/14/25 11:30 02/17/25 06:38 60 MLS/HR Acetaminophen/ Hydrocodone Bitart 1 tab Q4HP PRN PO 02/14/25 11:30 02/17/25 05:09 1 TAB Ondansetron HCl 4 mg Q4HP PRN IV 02/14/25 11:30 Docusate Sodium 100 mg BIDPRN PRN PO 02/14/25 11:30 Enoxaparin Sodium 40 mg DAILY SC 02/15/25 10:00 02/17/25 10:13 40 MG Zinc Sulfate 220 mg DAILY PO 02/15/25 10:00 02/17/25 10:13 220 MG Ascorbic Acid 500 mg BID PO 02/14/25 22:00 02/17/25 10:13 500 MG Ibuprofen 600 mg Q6HP PRN PO 02/14/25 11:30 Nitroglycerin 0.4 mg Q5MINP PRN SL 02/14/25 13:00 Morphine Sulfate 2 mg Q30M PRN IV 02/14/25 13:15 Morphine Sulfate 2 mg Q4HPRN PRN IV 02/15/25 11:15 02/17/25 10:14 2 MG Laboratory Results Laboratory Tests 02/15/25 04:47 Urinalysis Test 02/16/25 11:29 Urine Color Light-yellow (Yellow) Urine Clarity Turbid (Clear) H Urine pH 7.5 (5.0-9.0) Urine Specific [place] 1.016 (1.001-1.035) Urine Protein Negative (Negative) Urine Ketones Negative (Negative) Urine Blood Negative /uL (Negative) Urine Nitrite Negative (Negative) Urine Bilirubin Negative (Negative) Urine Urobilinogen Normal mg/dL (Negative) Urine Leukocyte Esterase Negative /uL (Negative) Urine RBC 1 /hpf (0 - 4) Urine Microscopic WBC 1 /HPF (0-5) Urine Squamous Epithelial Cells Few /hpf (<5) Urine Amorphous Crystals Few /hpf (None Seen) Urine Bacteria None seen /hpf (None Seen) Urine Mucus Few (None Seen) Urine Glucose Normal mg/dL (Normal) Labs and/or images reviewed: Labs reviewed by me, Image(s) reviewed by me Assessment/Plan Assessment/Plan Cellulitis of left foot: Rocephin clindamycin pain medication, wound nurse consult Open wound dorsum of the left foot status post surgery at [facility] Thrombocytosis Chronic wound left foot DCd from this hospital 02-14-25 Substance abuse positive for amphetamine and fentanyl, counselled RN Ray at bedside Plan discussed with: Patient My Orders Orders - EMANUEL WEEKS MD Procedure Category Date Status Time Wound Culture W/ Gs CARMEN 02/16/25 In Process 12:46 Date of Service: Feb 17, 2025 Billing Provider: EMANUEL WEEKS MD Common Visit Codes: [id number] INP/OBS CARE(HIGH) EMANUEL WEEKS MD Feb 17, 2025 11:02
[2025-02-18 05:00] VITALS: BP 123/68; PULSE 78; RESP 19; TEMP 97.8; O2SAT 100
[2025-02-18 08:52] VITALS: BP 106/70; PULSE 88; RESP 20; TEMP 98; O2SAT 100
--- NOTE | 2025-02-18 11:55 | DVHPN2 ---
Reviewed: Care Plan, H&P, Labs, Medications, Previous Orders, Radiology Changes from previous H/P or p: No Changes Eyes: No Pain, No Vision change, No Conjunctivae inflammation, No Eyelid inflammation, No Other, No Redness ENT: No Ear pain, No Ear discharge, No Nose pain, No Nose discharge, No Nose congestion, No Mouth pain, No Mouth swelling, No Throat pain, No Throat swelling, No Other Cardiovascular: No Chest Pain, No Palpitations, No Orthopnea, No Paroxysmal Noc. Dyspnea, No Edema, No Lt Headedness, No Other Respiratory: No Cough, No Dry, No Shortness of breath, No SOB with excertion, No Wheezing, No Hemoptysis, No Pleuritic Pain, No Sputum, No Other Gastrointestinal: No Nausea, No Vomiting, No Abdominal Pain, No Diarrhea, No Constipation, No Melena, No Hematochezia, No Other Genitourinary: No Dysuria, No Frequency, No Incontinence, No Hematuria, No Retention, No Other Musculoskeletal: other (Left foot edema/pain); No neck pain, No shoulder pain, No arm pain, No back pain, No hand pain, No leg pain, No foot pain Skin: No Rash, No Lesions, No Jaundice, No Bruising; Other (Left foot abscess) Objective Vitals Vital Signs Date Time Temp Pulse Resp B/P (MAP) Pulse Ox O2 Delivery O2 Flow Rate FiO2 02/18/25 08:52 98.0 88 20 106/70 (82) 100 98.0 02/18/25 07:40 Room Air* 0 21 Intake/Output Intake and Output 02/18/25 07:00 Intake Total 1500 ml Balance 1500 ml Intake Oral 1100 ml IV Total 400 ml # Voids 4 # Bowel Movements 3 Medications Current Medications Medications Dose Ordered Sig/Nadia Route Start Time Stop Time Status Last Admin Dose Admin Ceftriaxone Sodium 50 ml @ 100 mls/hr DAILY@09 IV 02/15/25 09:00 02/18/25 09:47 100 MLS/HR Clindamycin Phosphate 50 ml @ 50 mls/hr Q8HR IV 02/14/25 19:00 02/18/25 06:14 50 MLS/HR Sodium Chloride 1,000 ml @ 60 mls/hr [id number] IV 02/14/25 11:30 02/18/25 06:14 60 MLS/HR Acetaminophen/ Hydrocodone Bitart 1 tab Q4HP PRN PO 02/14/25 11:30 02/17/25 05:09 1 TAB Ondansetron HCl 4 mg Q4HP PRN IV 02/14/25 11:30 Docusate Sodium 100 mg BIDPRN PRN PO 02/14/25 11:30 Enoxaparin Sodium 40 mg DAILY SC 02/15/25 10:00 02/18/25 09:46 40 MG Zinc Sulfate 220 mg DAILY PO 02/15/25 10:00 02/18/25 09:46 220 MG Ascorbic Acid 500 mg BID PO 02/14/25 22:00 02/18/25 09:46 500 MG Ibuprofen 600 mg Q6HP PRN PO 02/14/25 11:30 Nitroglycerin 0.4 mg Q5MINP PRN SL 02/14/25 13:00 Morphine Sulfate 2 mg Q30M PRN IV 02/14/25 13:15 Morphine Sulfate 2 mg Q4HPRN PRN IV 02/15/25 11:15 02/17/25 10:14 2 MG Laboratory Results Laboratory Tests 02/15/25 04:47 Urinalysis Test 02/16/25 11:29 Urine Color Light-yellow (Yellow) Urine Clarity Turbid (Clear) H Urine pH 7.5 (5.0-9.0) Urine Specific [place] 1.016 (1.001-1.035) Urine Protein Negative (Negative) Urine Ketones Negative (Negative) Urine Blood Negative /uL (Negative) Urine Nitrite Negative (Negative) Urine Bilirubin Negative (Negative) Urine Urobilinogen Normal mg/dL (Negative) Urine Leukocyte Esterase Negative /uL (Negative) Urine RBC 1 /hpf (0 - 4) Urine Microscopic WBC 1 /HPF (0-5) Urine Squamous Epithelial Cells Few /hpf (<5) Urine Amorphous Crystals Few /hpf (None Seen) Urine Bacteria None seen /hpf (None Seen) Urine Mucus Few (None Seen) Urine Glucose Normal mg/dL (Normal) Microbiology Microbiology Date/Time Source Procedure Growth Status 02/16/25 13:39 Foot Left Gram Stain - Final Resulted 02/16/25 13:39 Foot Left Wound Culture - Preliminary Resulted Labs and/or images reviewed: Labs reviewed by me, Image(s) reviewed by me Assessment/Plan Assessment/Plan Cellulitis of left foot: Rocephin clindamycin pain medication, wound nurse consult Open wound dorsum of the left foot status post surgery at [facility] Thrombocytosis Chronic wound left foot DCd from this hospital 02-14-25 Substance abuse positive for amphetamine and fentanyl, counselled MIKE Bell at bedside Patient requesting to be discharged home Plan discussed with: Patient Date of Service: Feb 18, 2025 Billing Provider: EMANUEL WEEKS MD Common Visit Codes: [id number] INP/OBS CARE(HIGH) EMANUEL WEEKS MD Feb 18, 2025 11:55
--- NOTE | 2025-02-18 11:59 | DVHDS2 ---
Discharge Summary Date of Admission Feb 14, 2025 at 12:53 Date of Discharge: Feb 18, 2025 Admitting Diagnosis Nonhealing left foot ulcer Wounds: Nonhealing left foot wound Labs/Diagnostic Data: Laboratory Results Test 02/16/25 11:29 02/15/25 04:47 Urine Color Light-yellow (Yellow) Urine Clarity Turbid (Clear) Urine pH 7.5 (5.0-9.0) Urine Specific [place] 1.016 (1.001-1.035) Urine Protein Negative (Negative) Urine Ketones Negative (Negative) Urine Blood Negative /uL (Negative) Urine Nitrite Negative (Negative) Urine Bilirubin Negative (Negative) Urine Urobilinogen Normal mg/dL (Negative) Urine Leukocyte Esterase Negative /uL (Negative) Urine RBC 1 /hpf (0 - 4) Urine Microscopic WBC 1 /HPF (0-5) Urine Squamous Epithelial Cells Few /hpf (<5) Urine Amorphous Crystals Few /hpf (None Seen) Urine Bacteria None seen /hpf (None Seen) Urine Mucus Few (None Seen) Urine Glucose Normal mg/dL (Normal) Urine Opiates Screen Neg (NEGATIVE) Urine Fentanyl Screen Pos (NEGATIVE) Urine Barbiturates Screen Neg (NEGATIVE) Urine Phencyclidine Screen Neg (NEGATIVE) Urine Amphetamines Screen Pos (NEGATIVE) Urine Benzodiazepines Screen Neg (NEGATIVE) Urine Cocaine Screen Neg (NEGATIVE) Urine Cannabinoids Screen Neg (NEGATIVE) White Blood Count 5.4 10^3/uL (4.4-10.8) Red Blood Count 4.21 10^6/uL (4.0-5.20) Hemoglobin 10.1 g/dL (12.2-16.2) Hematocrit 31.0 % (36.0-46.0) Mean Corpuscular Volume 73.5 fL (80.0-100.0) Mean Corpuscular Hemoglobin 23.9 pg (28.0-32.0) Mean Corpuscular Hemoglobin Concent 32.5 g/dL (32.0-36.0) Red Cell Distribution Width 17.3 % (11.8-14.3) Platelet Count 421 10^3/uL (140-450) Mean Platelet Volume 7.0 fL (6.9-10.8) Neutrophils (%) (Auto) 34.6 % (37.0-80.0) Lymphocytes (%) (Auto) 52.2 % (10.0-50.0) Monocytes (%) (Auto) 10.3 % (0.0-12.0) Eosinophils (%) (Auto) 2.2 % (0.0-7.0) Basophils (%) (Auto) 0.7 % (0.0-2.0) Neutrophils # (Auto) 1.9 10 ^3/uL (1.6-8.6) Lymphocytes # (Auto) 2.8 10 ^3/uL (0.4-5.4) Monocytes # (Auto) 0.6 10 ^3/uL (0-1.3) Eosinophils # (Auto) 0.1 10 ^3/uL (0-0.8) Basophils # (Auto) 0 10 ^3/uL (0-0.2) Nucleated Red Blood Cells 0.1 % Sodium Level 140 mmol/L (136-145) Potassium Level 3.7 mmol/L (3.5-5.1) Chloride Level 106 mmol/L (98-107) Carbon Dioxide Level 26 mmol/L (20-31) Anion Gap 8 (5-15) Blood Urea Nitrogen < 5 mg/dL (9-23) Creatinine 0.58 mg/dL (0.550-1.02) Glomerular Filtration Rate Calc 125 mL/min (>90) BUN/Creatinine Ratio 8.6 (10.0-20.0) Serum Glucose 95 mg/dL (74-106) Calcium Level 8.8 mg/dL (8.7-10.4) Total Bilirubin 0.3 mg/dL (0.2-1.0) Aspartate Amino Transferase (AST) 111 U/L (13-40) Alanine Aminotransferase (ALT) 117 U/L (7-40) Alkaline Phosphatase 73 U/L (46-116) Total Protein 7.3 g/dL (5.7-8.2) Albumin 3.1 g/dL (3.2-4.8) Other Laboratory Tests 02/15/25 04:47 Brief Hx & Hospital Course: 29-year-old female with a chronic nonhealing wound over the dorsum of the left foot came in complaining of pain. Found to have cellulitis of the left foot with a nonhealing chronic ulcer over the dorsum of the left foot wound care nurse consult was done started on Rocephin and clindamycin. Patient was discharged from this hospital on 02/14/2025 came back and readmitted next day . Tested positive for amphetamine and fentanyl patient was counseled patient wants to be discharged home. Discharged on clindamycin and Keflex and [place] she will follow up with the discharge clinic in one week. Plan was to place a podiatric consult on Thursday but the patient wants to leave today RN Ray was bedside. Consults/Reason for consult none Operations or Procedures None Condition at Discharge: Fair Final Diagnosis/Problems List Cellulitis of left foot: Rocephin clindamycin pain medication, wound nurse consult Open wound dorsum of the left foot status post surgery at [facility] Thrombocytosis Chronic wound left foot DCd from [facility] 02-14-25 Substance abuse positive for amphetamine and fentanyl, counselled Discharge Disposition: Home Discharge Instruct/Medications Diet: Regular Activity: Light activity Follow Up/Referral: Follow up with discharge clinic in one week Medications: Clindamycin Keflex [place] Transmitted to pharmacy Scheduled Cephalexin (Keflex Capsule), 250 MG PO QID 39 (Time Taken for discharge summary 39 minutes) Discharge Statement: "Patient was advised to return to the ER or call 911 if any headaches, dizziness, shortness of breath, chest pain, abdominal pain, bleeding, fevers, or worsening of medical condition. Patient was counseled about treatment plan, medications, possible side effects, patientverbalized understanding. All questions were answered to the best of my ability. This discharge took greater then 30 minutes in planning, reviewing documentation, counseling the patient, and discussing with other team members." ASSESSMENT ASSESSMENT Hospital Course Uneventful Assessment Cellulitis of left foot: Rocephin clindamycin pain medication, wound nurse consult Open wound dorsum of the left foot status post surgery at [facility] Thrombocytosis Chronic wound left foot DCd from this [facility] 02-14-25 Substance abuse positive for amphetamine and fentanyl, counselled Date of Service: Feb 18, 2025 Billing Provider: EMANUEL WEEKS MD Common Visit Codes: [id number] DISCH DAY >30min EMANUEL WEEKS MD Feb 18, 2025 11:59
[2025-02-18] MEDS ORDERED: HYDR-4902 PO (12:05)
[2025-02-18] MEDS ORDERED: CEPH500C PO (12:05)
[2025-02-18] MEDS ORDERED: CLIN1CAP70 PO (12:05)
[2025-02-18 12:42] VITALS: BP 99/55; PULSE 91; RESP 20; TEMP 98.3; O2SAT 96
[2025-02-18 13:12] VITALS: TEMP 36.8
== END 2025-02-18 14:30 | disposition home or self-care (01) | DRG 383 ==
LOC: ER 08:46 → OVERFLOW 12:53 → EDUNIT# 12:53 → WEST WING 20:38
PROVIDERS: ADMIT Family Medicine; ATTEND Family Medicine
DX: L03.116 Cellulitis of left lower limb (principal); E44.0 Moderate protein-calorie malnutrition; F15.10 Other stimulant abuse, uncomplicated; Z59.00 Homelessness unspecified; D75.839 Thrombocytosis, unspecified; L97.529 Non-pressure chronic ulcer of other part of left foot with unspecified severity; Z71.51 Drug abuse counseling and surveillance of drug abuser
CPT/HCPCS: 36415; 80048; 80053; 80307; 81001; 85025; 87077; 87081; 87186; 87205; G0378; J3490